=== PATIENT | female | born 1955 | race Caucasian/White ===

== ENCOUNTER 2016-06-08 06:46 | Inpatient (IN) | payer MEDICARE, OTHER ==
[~2016-06-08] VITALS: Ht 165.1 cm; Wt 93.4 kg
[~2016-06-08 06:46] MED LIST: NEURONTIN800 MG PO; TENORMIN 50 MG50 MG PO
[2016-06-08 07:44] LABS: HEMOGLOBIN 10.6 gm/dl (12.3-15.3); RED BLOOD COUNT 3.22 M/UL (4.00-5.10); WHITE BLOOD COUNT 2.2 K/UL (4.5-11.0)
[2016-06-08 08:13] LABS: BUN/CREATININE RATIO 18 (0-10)
[2016-06-08] MEDS ORDERED: RESTASIS 0.05%1 EACH OD (14:42)
[2016-06-08] MEDS ORDERED: GLUCOPHAGE1000 MG PO (14:43)
[2016-06-08] MEDS ORDERED: LISINOPRIL40 MG PO (14:43)
[2016-06-08] MEDS ORDERED: ZANTAC 150 MG150 MG PO (14:46)
[2016-06-08] MEDS ORDERED: PLAVIX 75 MG TA75 MG PO (14:46)
[2016-06-08] MEDS ORDERED: HYDROCHLOROTHIA25 MG PO (14:47)
[2016-06-08] MEDS ORDERED: LORCET PLUS 7.1 EACH PO (14:48)
[2016-06-08] MEDS ORDERED: ASPIR 8181 MG PO (14:49)
[2016-06-08] MEDS ORDERED: NITROSTAT 0.40.4 MG SL (14:50)
[2016-06-08] MEDS ORDERED: SPIRONOLACTONE50 MG PO (14:51)
[2016-06-08] MEDS ORDERED: IRON325 MG PO (14:51)
[2016-06-08] MEDS ORDERED: BUMETANIDE2 MG PO (14:51)
[2016-06-09 03:43] LABS: ACINETOBACTER BAUMANNII Not Detected (Negative); CANDIDA ALBICANS Not Detected (Negative); CANDIDA KRUSEI Not Detected (Negative); CANDIDA TROPICALIS Not Detected (Negative); ENTEROCOCCUS Not Detected (Negative); ESCHERICHIA COLI Not Detected (Negative); HAEMOPHILUS INFLUENZAE Not Detected (Negative); KLEBSIELLA OXYTOCA Not Detected (Negative); KLEBSIELLA PNEUMONIAE Not Detected (Negative); KPC-CARBAPENEM-RESISTANCE GENE Not Detected (Negative); PROTEUS Not Detected (Negative); PSEUDOMONAS AERUGINOSA Not Detected (Negative); SERRATIA MARCESANS Not Detected (Negative); STAPHYLOCOCCUS DETECTED (Negative); STAPHYLOCOCCUS AUREUS DETECTED (Negative); STREP AGALACTIAE (GROUP B) DETECTED (Negative); STREP PYOGENES (GROUP A) Not Detected (Negative); STREPTOCOCCUS DETECTED (Negative); mecA (METHICILLIN RESIST GENE Not Detected (Negative); vanA/B (VANCOMYCIN RESIST GENE Not Detected (Negative)
[2016-06-09 03:57] LABS: HEMOGLOBIN 8.9 gm/dl (12.3-15.3)
[2016-06-09 03:58] LABS: RED BLOOD COUNT 2.73 M/UL (4.00-5.10); WHITE BLOOD COUNT 3.9 K/UL (4.5-11.0)
[2016-06-11 07:11] LABS: HEMOGLOBIN 8.9 gm/dl (12.3-15.3); RED BLOOD COUNT 2.78 M/UL (4.00-5.10)
[2016-06-11 07:17] LABS: WHITE BLOOD COUNT 1.5 K/UL (4.5-11.0)
[2016-06-12 07:03] LABS: HEMOGLOBIN 9.3 gm/dl (12.3-15.3); RED BLOOD COUNT 2.89 M/UL (4.00-5.10); WHITE BLOOD COUNT 2.3 K/UL (4.5-11.0)
[2016-06-12] MEDS ORDERED: LEVAQUIN750 MG PO (12:57)
[2016-06-12] MEDS ORDERED: MUCINEX600 MG PO (12:57)
[2016-11-26] MEDS ORDERED: METRONIDAZOLE45 G1 TP (02:52)
[2016-11-28] MEDS ORDERED: OMNICEF 300 MG300 MG PO (14:48)
[2016-11-28] MEDS ORDERED: CIPRO HC OTIC S10 ML OT (14:49)
== END 2016-06-12 14:37 | disposition home or self-care (01) | DRG 871 ==
LOC: ER1 06:46 → ZEROF 11:08 → MED SURG 4 11:08
PROVIDERS: Emergency Medicine; Internal Medicine; ADMIT Emergency Medicine
DX: A41.9 Sepsis, unspecified organism (principal); J96.21 Acute and chronic respiratory failure with hypoxia; J18.9 Pneumonia, unspecified organism; D61.818 Other pancytopenia; J90 Pleural effusion, not elsewhere classified; J98.11 Atelectasis; J81.1 Chronic pulmonary edema; K74.60 Unspecified cirrhosis of liver; K75.81 Nonalcoholic steatohepatitis (NASH); E11.9 Type 2 diabetes mellitus without complications; I10 Essential (primary) hypertension; E78.5 Hyperlipidemia, unspecified; K29.80 Duodenitis without bleeding; R16.1 Splenomegaly, not elsewhere classified; E66.9 Obesity, unspecified; Z68.34 Body mass index [BMI] 34.0-34.9, adult; Z79.84 Long term (current) use of oral hypoglycemic drugs; Z79.02 Long term (current) use of antithrombotics/antiplatelets; Z79.82 Long term (current) use of aspirin; Z79.1 Long term (current) use of non-steroidal anti-inflammatories (NSAID); Z79.891 Long term (current) use of opiate analgesic; Z79.899 Other long term (current) drug therapy; Z86.010 Personal history of colon polyps; Z90.710 Acquired absence of both cervix and uterus; Z98.890 Other specified postprocedural states; Z82.49 Family history of ischemic heart disease and other diseases of the circulatory system
CPT/HCPCS: 36415; 36600; 71010; 71035; 80048; 80053; 82550; 82553; 82803; 82962; 83605; 83735; 83874; 83880; 84100; 84484; 85025; 85027; 87040; 87077; 87150; 87186; 93005; 94640; 94664; 96365; 96375; 99285; J0456; J0696; J1940; J1956; J2405; J2550; J2920; J2930; J7050; Q9963

== ENCOUNTER 2016-06-14 20:07 | Emergency (ER) | payer MEDICARE, OTHER ==
[~2016-06-14 20:07] MED LIST changes: +ASPIR 8181 MG PO; +BUMETANIDE2 MG PO; +GLUCOPHAGE1000 MG PO; +HYDROCHLOROTHIA25 MG PO; +IRON325 MG PO; +LEVAQUIN750 MG PO; +LISINOPRIL40 MG PO; +LORCET PLUS 7.1 EACH PO; +MUCINEX600 MG PO; +NITROSTAT 0.40.4 MG SL; +PLAVIX 75 MG TA75 MG PO; +RESTASIS 0.05%1 EACH OD; +SPIRONOLACTONE50 MG PO; +ZANTAC 150 MG150 MG PO
[2016-06-15 02:19] LABS: HEMOGLOBIN 10.2 gm/dl (12.3-15.3); RED BLOOD COUNT 3.17 M/UL (4.00-5.10)
[2016-11-26] MEDS ORDERED: METRONIDAZOLE45 G1 TP (02:52)
[2016-11-28] MEDS ORDERED: OMNICEF 300 MG300 MG PO (14:48)
[2016-11-28] MEDS ORDERED: CIPRO HC OTIC S10 ML OT (14:49)
== END 2016-06-15 11:10 | disposition home or self-care (01) ==
LOC: ER1 20:07
PROVIDERS: Emergency Medicine
DX: J90 Pleural effusion, not elsewhere classified (principal); R05 Cough; E11.9 Type 2 diabetes mellitus without complications; I10 Essential (primary) hypertension
CPT/HCPCS: 36415; 36600; 71010; 80053; 82550; 82553; 82803; 83605; 83874; 83880; 84484; 85025; 87040; 93005; 94664; 99284